=== PATIENT | male | born 1985 | race African-American/Black ===

== ENCOUNTER 2018-11-06 18:49 | Emergency (ER) | payer OTHER ==
[2018-11-06 19:04] VITALS: BP 138/74; PULSE 65; TEMP 98.3; BMI 31.9
--- NOTE | 2018-11-06 21:08 | PDOC ---
History of Present Illness - General Chief Complaint: Pain, Acute Stated Complaint: STOMACH PAIN Time Seen by Provider: 11/06/18 20:08 History Source: Patient Exam Limitations: No Limitations Past History - Past Medical History Allergies/Adverse Reactions: Allergies Allergy/AdvReac Type Severity Reaction Status Date / Time No Known Allergies Allergy Verified 11/06/18 18:59 Home Medications: Ambulatory Orders No Home Medications 0 dose .ROUTE UTDICT 09/21/12 COPD: No - Immunization History Td Vaccination: Yes Immunization Up to Date: No - Suicide/Smoking/Psychosocial Hx Smoking Status: No Smoking History: Never smoked Number of Cigarettes Smoked Daily: 0 Hx Alcohol Use: No Drug/Substance Use Hx: No *Physical Exam - Vital Signs Last Vital Signs Temp Pulse Resp BP Pulse Ox 98.3 F 65 16 138/74 100 11/06/18 19:00 11/06/18 19:00 11/06/18 19:00 11/06/18 19:00 11/06/18 19:00 - Physical Exam General Appearance: No: Apparent Distress Respiratory/Chest: positive: Lungs Clear, Normal Breath Sounds. negative: Respiratory Distress Cardiovascular: positive: Regular Rhythm, Regular Rate, S1, S2. negative: Murmur Gastrointestinal/Abdominal: positive: Normal Bowel Sounds, Soft. negative: Tender, Distended, Guarding, Rebound, Tenderness, Mass Musculoskeletal: negative: CVA Tenderness Neurologic: positive: Fully Oriented, Alert, Normal Mood/Affect Moderate Sedation - Procedure Monitoring Vital Signs: Procedure Monitoring Vital Signs Temperature 98.3 F 11/06/18 19:00 Pulse Rate 65 11/06/18 19:00 Respiratory Rate 16 11/06/18 19:00 Blood Pressure 138/74 11/06/18 19:00 O2 Sat by Pulse Oximetry (%) 100 11/06/18 19:00 Medical Decision Making - Medical Decision Making 32 y/o M with no sig pmh presents with LLQ abdominal pain x 2 months, worsening past 2 days along with constipation from 1 week ago (last BM was yesterday). Mentions noting some small white "stuff" in his stool, which moves and has been researching online, concerned he may have parasite infection. Mentions he has followed in a clinic in [facility] where he had stool studies done which were unremarkable. Denies fever, chills, sob, cp, n/v/d, black/ bloody stools, urinary complaints, weight loss, weakness. Given how comfortable patient appears, unremarkable PE, and afebrile, not suspicious for any acute pathology such as diverticulitis, appendicitis, kidney stones. Advised f/u with PCP for further care. 11/06/18 21:04 *DC/Admit/Observation/Transfer Diagnosis at time of Disposition: Left lower quadrant abdominal pain of unknown etiology - Discharge Dispostion Disposition: HOME Condition at time of disposition: Good Decision to Admit order: No - Referrals - Patient Instructions Printed Discharge Instructions: DI for Abdominal Pain-Adult Additional Instructions: Thank you for choosing [facility]. It was a pleasure taking care of you. Please continue follow-up with your primary care doctor Return to the Emergency Department if your symptoms worsen or persist, you have fever, shortness of breath, chest pain, severe abdominal pain, vomiting, unexplained weight loss, black or bloody stools or other concerning symptoms. - Post Discharge Activity
--- NOTE | 2018-11-06 21:34 | PDOC ---
*Physical Exam - Vital Signs Last Vital Signs Temp Pulse Resp BP Pulse Ox 98.3 F 65 16 138/74 100 11/06/18 19:00 11/06/18 19:00 11/06/18 19:00 11/06/18 19:00 11/06/18 19:00 - Physical Exam Comments: 11/06/18 21:33 The patient was examined by [JESSE Benedict] under my direct supervision. I personally evaluated the patient. I concur with the above findings and the plan of care.
== END 2018-11-06 21:53 | disposition home or self-care (01) ==
LOC: JER 18:49
DX: R10.32 Left lower quadrant pain (principal)
CPT/HCPCS: 99282-25